=== PATIENT | male | born 1955 | race Caucasian/White ===

== ENCOUNTER 2016-05-23 23:52 | Emergency (ER) ==
[2016-05-24 00:18] VITALS: BP 132/77; TEMP 98.6; BMI 23.2
[2016-05-24] MEDS ORDERED: SOLU-MEDROL 125 MG IM STA (00:22)
[2016-05-24] MEDS ORDERED: ZANTAC PO STA (00:23)
[2016-05-24] MEDS ORDERED: CLARITIN PO STA (00:23)
--- NOTE | 2016-05-24 00:45 | ED.PDOC ---
General ED Provider: Dr. JULIET VALENCIA Chief Complaint: Allergic Reaction Stated Complaint: Had diverticulitis - surgery on 05/14/[address] Brooks at [facility]. Was put on Morphine and developed a rash. Discharged and prescribed Percocets. Took them for couple days. Now has been switched to Demerol and has taken 12 tabs. Says generalized rash is worse and is concerned he is allergic to meds. Itching all over. Time Seen by Physician: 00:30 Mode of Arrival: Walk-In Information Source: Patient Exam Limitations: No limitations Primary Care Provider: ALEX CONTRERAS Nursing and Triage Documentation Reviewed and Agree: Yes Skin Complaint Exam - Skin Rash/Itching Complaint/Exam Onset/Duration: 2 days Symptoms Are: Still present Initial Severity: Mild Current Severity: Severe Location: generalized Potential Exposures: Reports: Medicines Prior Treatment: bendryl Alleviating: Reports: None Associated Signs and Symptoms: Denies: Difficulty breathing, Fever, Chills Skin Findings: Present: Urticaria Differential Diagnoses: Contact Dermatitis, Urticaria, Viral Exanthema Review of Systems - Review Of Systems Constitutional: Reports: No symptoms Eyes: Reports: No symptoms Ears, Nose, Mouth, Throat: Reports: No symptoms Respiratory: Reports: No symptoms Cardiac: Reports: No symptoms GI: Reports: No symptoms : Reports: No symptoms Skin: Reports: Rash Neurological: Reports: Anxiety All Other Systems: Reviewed and Negative Past Medical History - Past Medical History Endocrine: Reports: None Cardiovascular: Reports: None Respiratory: Reports: None Hematological: Reports: None Gastrointestinal: Reports: GERD Genitourinary: Reports: Kidney stones Neuro/Psych: Reports: None Musculoskeletal: Reports: Arthritis (rheumatoid ) Cancer: Reports: None - Surgical History General Surgical History: Reports: Appendectomy, Other (Recent Abdominal surgery partial colectomy ( 1.4 ) feet removed. ) - Family History Family History: Reports: None - Social History Smoking Status: Current every day smoker Hx Substance Use: No Alcohol Screening: Occasionally - Immunizations Tetanus Shot up to Date: No (unsure) Physical Exam - Physical Exam Appearance: Well-appearing, No pain distress, Well-nourished Eyes: TETE, EOMI, Conjunctiva clear ENT: Ears normal, Nose normal, Oropharynx normal Respiratory: Airway patent, Breath sounds clear, Breath sounds equal, Respirations nonlabored Cardiovascular: RRR, Pulses normal, No rub, No murmur GI/: Soft, Nontender, No masses, Bowel sounds normal, No Organomegaly Musculoskeletal: Normal strength, ROM intact, No edema, No calf tenderness Neurological: Sensation intact, Motor intact, Reflexes intact, Cranial nerves intact, Alert, Oriented Psychiatric: Anxious Re-Evaluation - Re-Evaluation Time of Re-Evaluation: 00:40 Status: Improved Skin: Other (Less itching.) Critical Care Note - Critical Care Note Total Time (mins): 0 Course - Course Orders, Labs, Meds: Orders Category Date Time Status Epinephrine Amp [Epinephrine 1:1,000 Amp] MEDS 05/24/16 01:11 Discontinued 1 mg .ROUTE .STK-MED ONE Epinephrine [Adrenalin 1:1000 Sdv] MEDS 05/24/16 01:07 Discontinued 0.4 mg IM ONCE STA Loratadine [Claritin] MEDS 05/24/16 00:23 Discontinued 10 mg PO ONCE STA Methylprednisolone Sod Succ/Pf [Solu-Medrol 125 mg] MEDS 05/24/16 00:22 Discontinued 125 mg IM ONCE STA Ranitidine HCl [Zantac] MEDS 05/24/16 00:23 Discontinued 300 mg PO ONCE STA Medications Discontinued Medications Generic Name Dose Route Start Last Admin Trade Name Freq PRN Reason Stop Dose Admin Epinephrine HCl 0.4 mg 05/24/16 01:07 05/24/16 01:18 Adrenalin 1:1000 Sdv IM 05/24/16 01:08 0.4 mg ONCE STA Administration Loratadine 10 mg 05/24/16 00:23 05/24/16 00:34 Claritin PO 05/24/16 00:24 10 mg ONCE STA Administration Methylprednisolone Sodium Succinate 125 mg 05/24/16 00:22 05/24/16 00:34 Solu-Medrol 125 Mg IM 05/24/16 00:23 125 mg ONCE STA Administration Ranitidine HCl 300 mg 05/24/16 00:23 05/24/16 00:34 Zantac PO 05/24/16 00:24 300 mg ONCE STA Administration Vital Signs: Temp Pulse Resp BP Pulse Ox 05/23/16 23:52 98.6 F 74 20 132/77 95 Departure - Departure Time of Disposition: 00:45 Disposition: HOME SELF-CARE Discharge Problem: Multiple drug allergies Instructions: Allergies (ED) Condition: Fair Pt referred to PMD for follow-up: Yes Additional Instructions: Take medications as prescribed Follow up with PCP stop possible offending medications. Prescriptions: Methylprednisolone [Medrol Dosepak] 4 mg PO DIRECTED #1 pkg Allergies/Adverse Reactions: Allergies acetaminophen [From Percocet] Adverse Reaction (Verified 05/24/16 00:06) bacitracin [From Neosporin ([id number])] Adverse Reaction (Verified 05/24/16 00:06) meperidine [From Demerol] Adverse Reaction (Verified 05/24/16 00:07) neomycin [From Neosporin ([id number])] Adverse Reaction (Verified 05/24/16 00 :06) oxycodone [From Percocet] Adverse Reaction (Verified 05/24/16 00:06) polymyxin B [From Neosporin ([id number])] Adverse Reaction (Verified 00:06) Home Medications: Ambulatory Orders Methylprednisolone [Medrol Dosepak] 4 mg PO DIRECTED #1 pkg 05/24/16 Disposition Discussed With: Patient, Family
[2016-05-24] MEDS ORDERED: ADRENALIN 1:1000 SDV IM STA (01:07)
[2016-05-24] MEDS ORDERED: EPINEPHRINE 1:1,000 AMP ONE (01:11)
== END 2016-05-24 01:45 | disposition home or self-care (01) ==
LOC: ED 23:52
DX: L27.0 Generalized skin eruption due to drugs and medicaments taken internally (principal); T40.2X5A Adverse effect of other opioids, initial encounter; T39.1X5A Adverse effect of 4-Aminophenol derivatives, initial encounter; F17.210 Nicotine dependence, cigarettes, uncomplicated; Z98.890 Other specified postprocedural states
CPT/HCPCS: 96372; 99283